=== PATIENT | female | born 1955 | race Caucasian/White ===

== ENCOUNTER 2020-05-17 13:33 | Outpatient (CLI) | payer MEDICARE, SELFPAY ==
--- NOTE | 2020-05-17 13:47 | MM_ITS ---
WS: [id number] Bilateral screening digital mammogram, 05/17/2020 Clinical Data: SCREEN Comparison: 10/06/2018, 08/19/2016, 05/25/2012, 08/30/2009. Findings: The breast parenchymal pattern shows fat replacement. No spiculated masses or clustered calcification s are seen. There are no secondary signs of carcinoma. MM/[id number] Impression: 1. Negative bilateral mammogram unchanged. 2. Recommend annual screening mammograms. BIRADS: 1-Negative FOLLOW UP: 1 Year Follow-up The CAD mold checker was used.
== END 2020-05-17 13:34 | disposition home or self-care (01) ==
LOC: RADSHAW 13:43
PROVIDERS: PCP Family Medicine; Visit Provider Family Medicine
DX: Z12.31 Encounter for screening mammogram for malignant neoplasm of breast (principal)
CPT/HCPCS: 77067

== ENCOUNTER 2021-06-14 11:07 | Outpatient (CLI) | payer MEDICARE, SELFPAY ==
--- NOTE | 2021-06-14 11:15 | XR_ITS ---
WS: [id number] Bone mineral density performed on a [place], today Clinical data: POSTMENOPAUSAL Findings: The first 4 lumbar vertebral bodies demonstrated the bone mineral density of 0.964 g/cm2 for a young adult T score of -1.8. Measurement of the left hip reveals a bone mineral density of 0.691 g/cm2 with a young adult T score of -2.5. Measurement of the right hip reveals the bone mineral density of 0.728 g/cm2 for young adult T score of -2.2. XR/XR DEXA axial skeleton* [id number] Impression: 1. The lumbar spine and right hip show osteopenia. 2. The left hip shows osteoporosis.
--- NOTE | 2021-06-14 11:36 | MM_ITS ---
WS: [id number] BILATERAL DIGITAL SCREENING MAMMOGRAPHY WITH CAD CLINICAL INFORMATION: SCREENING HISTORY: Screening mammogram. No current complaints. COMPARISON: May 17, 2020 TECHNIQUE: Bilateral CC and MLO views. FINDINGS: Scattered fibroglandular densities bilaterally. Punctate calcifications. No suspicious focal mass, as ymmetry, calcifications, or architectural distortion. No evidence of malignancy. MM/[id number] IMPRESSION: BI-RADS: 2-Benign FOLLOW UP: 1 Year Follow-up Recommend return to annual screening mammography.
== END 2021-06-14 11:08 | disposition home or self-care (01) ==
PROVIDERS: PCP Family Medicine; Visit Provider Family Medicine
DX: Z12.31 Encounter for screening mammogram for malignant neoplasm of breast (principal); Z78.0 Asymptomatic menopausal state; M81.0 Age-related osteoporosis without current pathological fracture
CPT/HCPCS: 77067; 77080

== ENCOUNTER 2022-10-09 09:00 | Outpatient (CLI) | payer MEDICARE, SELFPAY ==
--- NOTE | 2022-10-09 09:10 | MM_ITS ---
WS: [id number] BILATERAL SCREENING DIGITAL TOMOSYNTHESIS MAMMOGRAM WITH CAD HISTORY: SCREENING COMPARISON: 06/14/2021, 05/17/2020 Bilateral CC and MLO views with tomosynthesis and synthetic mammography submitted. Computer aided det ection analyzed. Breast composition: There are scattered areas of fibroglandular density. No suspicious masses, microc alcifications or architectural distortion. Benign calcification central LEFT breast. MM/[id number] IMPRESSION: BI-RADS: 2-Benign FOLLOW UP: 1 Year Follow-up
== END 2022-10-09 09:01 | disposition home or self-care (01) ==
LOC: RAD 09:01
PROVIDERS: PCP Family Medicine; Visit Provider Family Medicine
DX: Z12.31 Encounter for screening mammogram for malignant neoplasm of breast (principal)
CPT/HCPCS: 77063; 77067

== ENCOUNTER 2022-10-19 10:27 | Inpatient (IN) | payer MEDICARE, SELFPAY ==
[2022-10-19] VITALS (77 sets, daily range): BP systolic 60–148; BP diastolic 42–100; PULSE 97–116; RESP 16–20; TEMP 36.4–36.6; O2SAT 73–100; BMI 33.4
--- NOTE | 2022-10-19 10:57 | ED_ITS ---
HPI - Weakness General: Chief complaint: Weakness Stated complaint: coughing, not eating, feel really sick Time Seen by Provider: 10/19/22 10:57 History of Present Illness: Ms. Pat is a 67-year-old lady with history of multiple sclerosis thyroid disorder presented to the emergency department due to generalized illness. Patient was seen few days ago in clinic for cough and generalized malaise diagnosed with RSV and sent home. Patient has been continuing symptomatic cares however continues to feel mildly worse. Intensity symptoms moderate. Chest discomfort associated with cough, does endorse some diarrhea, denies measured fevers. No other specific changes in health, exa cerbating, or alleviating factors identified. Onset (ago): day(s) Duration: progressively worsening Location: generalized Severity: moderate Relieving factors: none Exacerbating factors: none Review of Systems General: Reports: 10 or more systems reviewed and unremarkable except in HPI and below PFSH ED PFSH: Medical History Multiple sclerosis Thyroid disorder Surgical History H/O: hysterectomy Family History Other No significant family history Social History Smoking and tobacco status: never smoked Alcohol intake: current Alcohol intake frequency: holidays/special occasions only Substance/Drug Use: never Marital status: Current occupational status: retired Physical Exam Const: COMMON NORMALS: alert GENERAL APPEARANCE: cooperative, well developed and ill appearing (Somewhat) HENMT: COMMON NORMALS: normocephalic and atraumatic HEAD & SCALP: normocephalic and atraumatic THROAT: posterior oropharynx normal Eye: COMMON NORMALS: conjunctivae normal CONJUNCTIVA: Yes conjunctivae normal SCLERA: sclerae normal Neck/C-Spine: COMMON NORMALS: supple GENERAL: Yes trachea midline Resp: EFFORT & INSPECTION: Yes able to speak in complete sentences AUSCULTATION: wheezes and diminished lung sounds Cardio: COMMON NORMALS: regular rate and regular rhythm RATE: regular rate RHYTHM: regular rhythm GI: COMMON NORMALS: Soft to palpation PALPATION: Yes Soft to palpation and No Tenderness to palpation present (GI) Extremity: GENERAL: Yes normal exam except as noted and No edema Neuro: COMMON NORMALS: moves all extremities SENSORIUM/ORIENTATION: Yes alert and No Orientation impaired Psych: COMMON NORMALS: mental status grossly normal and Normal thought process present THOUGHT PROCESS: Normal thought process present Course Vital Signs: Vital signs: Vital Signs Temperature 97.6 F 10/21/22 08:00 Pulse Rate 70 10/21/22 08:00 Respiratory Rate 16 10/21/22 08:00 Blood Pressure 140/87 10/21/22 08:00 Pulse Oximetry 94 10/21/22 11:02 Oxygen Delivery Me thod 10/21/22 08:36 MDM - Weakness Medical Decision Making 67-year-old lady presenting with worsening respiratory symptoms. Somewhat ill appearance. Nontoxic. EKG shows sinus tachycardia, nonspecific ST segment abnormalities, no STEMI. Labs notable for marked leukocytosis, normal hemoglobin, thrombocytosis. Metabolic panel with evidence of dehydration, initial lactic acid is elevated with repeat pending. Mild transaminitis. Procalcitonin significantly elevated. Urinalysis concerning for UTI. Chest x-ray with left-sided consolidation. Given laboratory abnormalities patient overall clinical appearance additional imaging completed. Left lower lobe is almost completely consolidated, incidental findings discussed with patient. Patient treated with allergy treatment, steroids, IV fluids, antibiotics and analgesia. Appears mildly proved however given significant laboratory abnormalities patient requires inpatient management. Most likely etiology of patient symptoms is pneumonia and UTI. Evidence of sepsis present. The results of ED evaluation were discussed with the patient including plan for admission due to requirement for level of care not available if discharged to prevent significant worsening/deterioration. Patient agreeable with plan. Discussed with hospitalist service who was agreeable to admit patient. Medical Records I reviewed the patient's medical records. Lab Data I reviewed the patient's lab results. 10/21/22 03:22 10/21/22 03:22 Radiology Impressions Chest X-Ray 10/19/22 11:08 IMPRESSION: 1. Consolidation at the mid to lower aspects of the left lung. Differential includes atelectasis, pneumonia, and or underlying neoplasm. There is definitely a degree of atelectasis as there is hyper aeration of the right lung with a leftward mediastinal shift. 2. Moderate size hiatal hernia. Chest/Abdomen/Pelvis CT 10/19/22 12:08 IMPRESSION: 1. Left lower lobe is almost completely consolidated consistent with pneumonia and or atelectasis. Underlying neoplasm cannot be excluded. 2. There is a moderate size hiatal hernia. 3. Debris in the distal esophagus is consistent with reflux. IMPRESSION: No acute findings.Non acute findings as described above. COMMENTS: Consistent with the [place] [employer]'s Incidental Findings Committee white paper (J Am Blanca Radiol 2018): Any incidental renal lesion less than 1 cm or classified as too small to characterize, or any incidental cystic renal lesion characterized as simple-appearing, is likely benign. No follow-up imaging is recommended for these lesions per consensus recommendations based on imaging criteria. Laboratory Results WBC 43.3 10^3/uL (4.0-10.0) H* 10/19/22 11: RBC 4.16 10^6/uL (4.1-5.3) 10/19/22 11:27 Hgb 12.3 g/dL (11.5-15.3) 10/19/22 11:27 Hct 35.1 % (37.0-47.0) L 10/19/22 11:27 MCV 84.4 fl (81-99) 10/19/22 11:27 MCH 29.6 pg (28.0-34.0) 10/19/22 11:27 MCHC 35.0 g/dL (30.0-36.0) 10/19/22 11:27 RDW 14.4 % (12.1-15.1) 10/19/22 11:27 Plt Count 636 10^3/cmm (130-400) H 10/19/22 11:27 MPV 9.1 fL (7.4-10.4) 10/19/22 11:27 Neut % (Auto) 96.4 % 10/19/22 11: Lymph % (Auto) 1.6 % 10/19/22 11:27 [place] % (Auto) 1.8 % 10/19/22 11:27 Eos % (Auto) 0.1 % 10/19/22 11:27 Baso % (Auto) 0.1 % 10/19/22 11:27 Neut # (Auto) 39.35 10^3/uL (1.8-7.7) H 10/19/22 11:27 Lymph # (Auto) 0.7 10^3/uL (0.8-4.8) L 10/19/22 11:27 [place] # (Auto) 0.8 10^3/uL (0.2-0.9) 10/19/22 11:27 Eos # (Auto) 0.0 10^3/uL (0.0-0.8) 10/19/22 11:27 Baso # (Auto) 0.0 10^3/uL (0.0-0.1) 10/19/22 11:27 Nucleated RBC % (auto) 0 % 10/19/22 11:27 Nucleated RBCs # 0.0 /100WBC 10/19/22 11:27 Sodium 126 mmol/L (136-145) L 10/19/22 11:27 Potassium 3.4 mmol/L (3.5-5.1) L 10/19/22 11:27 Chloride 91 mmol/L (98-107) L 10/19/22 11:27 Carbon Dioxide 21 mmol/L (22-29) L 10/19/22 11:27 Anion Gap 17.4 (5-19) 10/19/22 11:27 BUN 20 mg/dL (8-23) 10/19/22 11:27 Creatinine 1.1 mg/dL (0.5-0.9) H 10/19/22 11:27 GFR Calculation 49.8 mL/min (90-130) L 10/19/22 11:27 Glucose 105 mg/dL (65-115) 10/19/22 11:27 Calculated Osmolality 265 mOsm/kg (285-295) L 10/19/22 11:27 Lactic Acid 3.9 mmol/L (0.5-2.2) H 10/19/22 12:06 Calcium 9.0 mg/dL (8.5-10.5) 10/19/22 11:27 Iron 8 ug/dL (37-145) L 10/19/22 11:39 TIBC 183 mcg/dl 10/19/22 11:39 % Saturation 4.3 % (20-50) L 10/19/22 11:39 Unsat Iron Binding 175 ug/dL (112-347) 10/19/22 11:39 Total Bilirubin 1.0 mg/dL (0.15-1.2) 10/19/22 11:27 AST 33 U/L (0-32) H 10/19/22 11:27 ALT 27 U/L (0-33) 10/19/22 11:27 Alkaline Phosphatase 228 U/L (35-105) H 10/19/22 11:27 C-Reactive Protein 420.2 mg/L (0.0-4.9) H 10/19/22 11:27 Total Protein 6.4 g/dL (6.6-8.7) L 10/19/22 11: Albumin 2.4 g/dL (3.5-5.2) L 10/19/22 11: Globulin 4.0 g/dL (1.3-4.6) 10/19/22 11:27 Procalcitonin 12.65 ng/mL (0-0.5) H 10/19/22 11: TSH 1.08 uIU/mL (0.27-4.20) 10/19/22 11:39 Urine Color Dark yellow (Yellow) 10/19/22 11:35 Urine Appearance Cloudy (CLEAR) A 10/19/22 11:35 Urine pH 5 (5-7) 10/19/22 11:35 Ur Specific [place] 1.015 (1.005-1.030) 10/19/22 11:35 Urine Protein 2+ (Negative) H 10/19/22 11:35 Urine Glucose (UA) Norm (Normal) 10/19/22 11:35 Urine Ketones 1+ (Negative) H 10/19/22 11:35 Urine Blood 2+ (Negative) H 10/19/22 11:35 Urine Nitrate Positive (Negative) H 10/19/22 11:35 Urine Bilirubin 1+ (Negative) H 10/19/22 11:35 Urine Urobilinogen 4 mg/dL (Negative) H 10/19/22 11:35 Ur Leukocyte Esterase 2+ (Negative) H 10/19/22 11:35 Urine RBC 5-10 /hpf (0-2) H 10/19/22 11:35 Urine WBC Too numerous to cnt /hpf (0-5) H 10/19/22 11:35 Ur Squamous Epith Cells 0-4 /hpf (0-5) H 10/19/22 11:35 Amorphous Sediment Not Reportable 10/19/22 11:35 Urine Bacteria 2+ /hpf (NONE) H 10/19/22 11:35 Influenza Type A Ag negative (Negative) 10/19/22 11:23 Influenza Type B Ag negative (Negative) 10/19/22 11:23 SARS-CoV-2 Ag (Rapid) negative (Negative) 10/19/22 11:23 Critical Care Time Critical Care Time: Critical Care Time: Yes Total Critical Care Time: 35 Attestation: Due to a high probability of clinically significant, possibly life threatening deterioration, the patient required my highest level of attention and preparedness to intervene emergently and I personally spent this critical care time directly and personally managing the patient. This critical care time included obtaining a history; examining the patient; pulse oximetry; ordering and review of laboratory and imaging studies; arranging urgent treatment with development of a management plan; evaluation of patient's response to treatment; frequent reassessment; and, discussions with other providers as applicable. It was exclusive of separately billable procedures. 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
--- NOTE | 2022-10-19 11:08 | XRR_ITS ---
PROCEDURE INFORMATION: Exam: XR Chest Exam date and time: 10/19/2022 11:36 AM Age: 67 years old Clinical indication: Cough and shortness of breath; Additional info: SOB, cough TECHNIQUE: Imaging protocol: Radiologic exam of the chest. Views: 1 view. COMPARISON: CR XR chest 2V* [id number] 10/15/2022 7:57 AM FINDINGS: Lungs: There is hyper aeration of the right lung in relation to the left with a leftward mediastinal shift. There is consolidation at the mid to lower aspects of the left lung field. Pleural spaces: Left costophrenic angle is obscured and a pleural effusion cannot be excluded. Heart/Mediastinum: Moderate size hiatal hernia with an air-fluid level, also seen on the prior study. Bones/joints: Unremarkable. XR/XR chest 1V portable [id number] IMPRESSION: 1. Consolidation at the mid to lower aspects of the left lung. Differential includes atelectasis, pneumonia, and or underlying neoplasm. There is definitely a degree of atelectasis as there is hyper aeration of the right lung with a leftward mediastinal shift. 2. Moderate size hiatal hernia.
--- NOTE | 2022-10-19 11:09 | ECG_ITS ---
[facility] Test Date: 2022-10-19 Pat Name: Maureen Pat Department: Room: Gender: Female Grinder Setup Operator: : [id number] Requested By: Aryan Velasco Order Number: [id number] Lola MD: Svetlana Sanchez M.D. Measurements Intervals [place] Rate: 113 P: 52 [place]: 151 QRS: -8 QRSD: 108 T: 24 QT: 318 QTc: 437 Interpretive Statements SINUS TACHYCARDIA LOW QRS VOLTAGE IN PRECORDIAL LEADS [QRS DEFLECTION < 1.0 mV IN CHEST LEADS] POSSIBLE ANTERIOR MYOCARDIAL INFARCTION , OF INDETERMINATE AGE [30 ms Q WAVE IN V3/V4, OR R < 0.2 mV IN V4] Compared to ECG 10/29/2018 05:23:08 Myocardial infarct finding now present Sinus rhythm no longer present Electronically Signed On 10-20-2022 6:01:30 STORE FACILITY TECHNICIAN by Svetlana Sanchez M.D. [id number]
[2022-10-19] MEDS: ketorolac 30 mg/mL INJ 15 MG IVP (11:34)
[2022-10-19] MEDS: dexamethasone 10 mg/mL INJ IVP (11:34)
[2022-10-19] MEDS: sodium chloride 0.9% 1,000 ML 999 ML IV ×2 (11:34→12:37)
[2022-10-19 11:36] LABS: Basophils % 0.1 %; Eosinophils % 0.1 %; Hematocrit 35.1 % (37.0-47.0); Hemoglobin 12.3 g/dL (11.5-15.3); Lymphocytes # 0.7 10^3/uL (0.8-4.8); Lymphocytes % 1.6 %; Mean Corpuscular Hemoglobin 29.6 pg (28.0-34.0); Mean Corpuscular Volume 84.4 fl (81-99); Mean Platelet Volume 9.1 fL (7.4-10.4); Monocytes # 0.8 10^3/uL (0.2-0.9); Monocytes % 1.8 %; Neutrophils # 39.35 10^3/uL (1.8-7.7); Nucleated Red Blood Cells % 0 %; Platelet Count 636 10^3/cmm (130-400); Red Blood Count 4.16 10^6/uL (4.1-5.3); Red Cell Distribution Width 14.4 % (12.1-15.1)
[2022-10-19 11:51] LABS: Neutrophils % 96.4 %; Slide Review Slide Review Perform
[2022-10-19 11:52] LABS: White Blood Count 43.3 10^3/uL (4.0-10.0)
[2022-10-19 11:53] LABS: SARS Covid-2 Antigen negative (Negative)
[2022-10-19 11:54] LABS: Influenza A by IFA negative (Negative); Influenza B by IFA negative (Negative)
[2022-10-19 12:02] LABS: Procalcitonin 12.65 ng/mL (0-0.5); Thyroid Stimulating Hormone 1.14 uIU/mL (0.27-4.20)
[2022-10-19] MEDS: ipratropium-albuterol 3 mL Neb INHALATION (12:02)
--- NOTE | 2022-10-19 12:08 | CTR_ITS ---
PROCEDURE INFORMATION: Exam: CT Chest With Contrast; Diagnostic Exam date and time: 10/19/2022 1:11 PM Age: 67 years old Clinical indication: Cough, diarrhea, marked leukocytosis TECHNIQUE: Imaging protocol: Diagnostic computed tomography of the chest with contrast. Radiation optimization: All CT scans at this facility use at least one of these dose optimization techniques: automated exposure control; mA and/or kV adjustment per patient size (includes targeted exams where dose is matched to clinical indication); or iterative reconstruction. Contrast material: OMNI 350; Contrast volume: 100 ml; Contrast route: INTRAVENOUS (IV); COMPARISON: CR (CHEST, ) 10/19/2022 11:36 AM RADIATION DOSE METRICS: Total DLP (mGy-cm): 1133.44 FINDINGS: Lungs: Left lower lobe is almost completely consolidated. Mild leftward mediastinal shift. Pleural spaces: Unremarkable. No pneumothorax. No pleural effusion. Heart: Unremarkable. No cardiomegaly. No pericardial effusion. Lymph nodes: Unremarkable. No enlarged lymph nodes. Vasculature: Unremarkable. No aortic aneurysm. Diaphragm: Moderate size hiatal hernia. Stomach and bowel: There is debris in the distal esophagus consistent with reflux. Bones/joints: Unremarkable. No acute fracture. Soft tissues: Unremarkable. PROCEDURE INFORMATION: Exam: CT Abdomen And Pelvis With Contrast Exam date and time: 10/19/2022 1:11 PM Age: 67 years old Clinical indication: Other: Diarrhea; Cough; Additional info: Cough, diarrhea, marked leukocytosis TECHNIQUE: Imaging protocol: Computed tomography of the abdomen and pelvis with contrast. Radiation optimization: All CT scans at this facility use at least one of these dose optimization techniques: automated exposure control; mA and/or kV adjustment per patient size (includes targeted exams where dose is matched to clinical indication); or iterative reconstruction. Contrast material: OMNI 350; Contrast volume: 100 ml; Contrast route: INTRAVENOUS (IV); COMPARISON: CR (CHEST, ) 10/19/2022 11:36 AM RADIATION DOSE METRICS: Total DLP (mGy-cm): 1133.44 FINDINGS: Liver: Normal. No mass. Gallbladder and bile ducts: Normal. No calcified stones. No ductal dilation. Pancreas: Normal. No ductal dilation. Spleen: Normal. No splenomegaly. Adrenal glands: Normal. No mass. Kidneys and ureters: 11 mm cyst in the left kidney is benign features. Follow-up is not necessary. Stomach and bowel: Unremarkable. No obstruction. No mucosal thickening. Appendix: A normal appendix is identified. Intraperitoneal space: Unremarkable. No free air. No significant fluid collection. Vasculature: Unremarkable. No abdominal aortic aneurysm. Lymph nodes: Unremarkable. No enlarged lymph nodes. Urinary bladder: Unremarkable as visualized. Reproductive: The uterus is not visualized, consistent with hysterectomy. Bones/joints: There are degenerative changes in the visualized spine. Lumbar levoscoliosis. Soft tissues: Tiny fat containing umbilical hernia. CT/CT chest abd pel w con* IMPRESSION: 1. Left lower lobe is almost completely consolidated consistent with pneumonia and or atelectasis. Underlying neoplasm cannot be excluded. 2. There is a moderate size hiatal hernia. 3. Debris in the distal esophagus is consistent with reflux. IMPRESSION: No acute findings.Non acute findings as described above. COMMENTS: Consistent with the [place] [employer]'s Incidental Findings Committee white paper (J Am Blanca Radiol 2018): Any incidental renal lesion less than 1 cm or classified as too small to characterize, or any incidental cystic renal lesion characterized as simple-appearing, is likely benign. No follow-up imaging is recommended for these lesions per consensus recommendations based on imaging criteria.
[2022-10-19 12:10] LABS: Add Urine Microscopic? YES; Bilirubin Urine 1+ (Negative); Blood Urine 2+ (Negative); Glucose Urine UA Norm (Normal); Ketones Urine 1+ (Negative); Leukocyte Esterase Urine 2+ (Negative); Nitrate Urine Positive (Negative); Protein Urine 2+ (Negative); Specific Gravity, Urine 1.015 (1.005-1.030); Urine Appearance Cloudy (CLEAR); Urine Color Dark Yellow (Yellow); Urobilinogen Urine 4 mg/dL (Negative); pH Urine 5 (5-7)
[2022-10-19 12:11] LABS: Add Urine Culture? Yes; Bacteria Urine 2+ /hpf; Squamous Epithelial Cell Urine 0-4 /hpf (0-5); WBC Urine TOO NUMEROUS TO CNT /hpf (0-5)
[2022-10-19 12:13] LABS: Alanine Aminotransferase 27 U/L (0-33); Albumin Level 2.4 g/dL (3.5-5.2); Alkaline Phosphatase 228 U/L (35-105); Anion Gap 17.4 (5-19); Aspartate Amino Transferase 33 U/L (0-32); Blood Urea Nitrogen 20 mg/dL (8-23); Carbon Dioxide 21 mmol/L (22-29); Chloride 91 mmol/L (98-107); Glomerular Filtration Rate 49.8 mL/min (90-130); Glucose 105 mg/dL (65-115); Osmolality Calculated 265 mOsm/kg (285-295); Potassium 3.4 mmol/L (3.5-5.1); Sodium 126 mmol/L (136-145); Total Protein 6.4 g/dL (6.6-8.7)
[2022-10-19 12:31] LABS: C Reactive Protein 420.2 mg/L (0.0-4.9)
[2022-10-19] MEDS: piperacillin-tazobactam 4.5 GM in sodium chloride 0.9% (plus) 50 ML IV (12:37)
[2022-10-19 12:45] LABS: Lactic Sepsis W/Reflex 3.9 mmol/L (0.5-2.2)
[2022-10-19] MEDS: iohexol 350 mg/mL 500 mL Btl (per mL) IV (13:27)
[2022-10-19 14:02] LABS: Reflex Lactate Order REFLEX LACTIC ORDERD
[2022-10-19] MEDS: vancomycin 1,500 MG/300 ML PIGGYBACK 200 MG IV (14:08)
--- NOTE | 2022-10-19 15:43 | PC.NURSE ---
Erinn valnezuela took report
[2022-10-19 16:17] LABS: Lactic Acid level (Lactate) 4.3 mmol/L (0.5-2.2)
--- NOTE | 2022-10-19 16:47 | P.HP_ITS ---
Providers/Chief Complaint Admitting Physician: Matthew Mittal Primary Care Provider: Esdras Aguilar MD Chief Complaint: coughing, not eating, feel really sick History of Present Illness Pleasant 67-year-old lady with history of MS, not currently on medical therapy, normally walks with a cane, hypothyroidism, has been feeling unwell for several days, initially diagnosed by RSV by her primary provider, but has not been improving, has been having generalized weakness, cough transiently had some diarrhea. Very poor appetite and poor oral intake. Due to some worsening and persistence of symptoms came in for assessment to ER. Here found to have sinus tachycardia, leukocytosis 43.3, hemoglobin 12.3, platelets 636. Sodium 126. Potassium 3.4. Chloride 91. Bicarb 21. Anion gap 17.4. Lactic acid 4.3. BUN 20, creatinine 1.1. AST 33. Alk phos 228. CRP 420. Albumin 2.4. Procalcitonin 4.65. TSH 1.14. Glucose 105. UA with urine cloudy, 2+ protein, 1+ ketones, 2+ blood, positive nitrate, 1+ bilirubin, urobilinogen 4, 2+ leukocyte esterase, 5-10 RBC, too numerous to count WBC, 0-4 SEC, 2+ bacteria. Last blood pressure 60/42 I am told he has not had his, rather than next patient in ER room she was just in. Review of Systems Const: Reports: fatigue, malaise and diaphoresis Eyes: Denies: change in vision, eye discomfort or eye redness ENMT: Denies: throat pain, oral sores or ear or mastoid pain Card: Denies: chest pain, edema, pre-syncope or dyspnea on exertion Resp: Reports: dyspnea and productive cough; Denies: hemoptysis GI: Reports: diarrhea; Denies: abdominal pain, nausea, vomiting, constipation, hematochezia or melena : Denies: flank pain, urinary frequency or hematuria Musc: Denies: back pain, joint swelling or joint redness Skin/Breast: Denies: rash or new lesions Neuro: Denies: headache(s), numbness in extremities, weakness in extremities, dizziness, confusion or seizure-like activity Endo: Denies: polyuria or polydipsia Chito/Lymph: Denies: easy bleeding or tender lymph nodes All/Imm: Denies: urticaria or tongue swelling Medications/Allergies Allergies Allergy/AdvReac Type Severity Reaction Status Date / Time No Known Allergies Allergy Verified 10/19/22 10:45 PFSH Acute PFSH: Medical History Multiple sclerosis Thyroid disorder Surgical History H/O: hysterectomy Family History Other No significant family history Social History Smoking and tobacco status: never smoked Alcohol intake: current Alcohol intake frequency: holidays/special occasions only Substance/Drug Use: never Marital status: Current occupational status: retired Vitals/I&O/Wt Last Vital Signs Temp 97.5 F L 10/19/22 10:45 Pulse 103 H 10/19/22 12:12 Resp 18 10/19/22 12:12 BP 60/42 10/19/22 16:40 Pulse Ox 83 L 10/19/22 14:55 O2 Del Method 10/19/22 12:12 10/19/22 10/19/22 10/19/22 06:59 14:59 22:59 Intake Total 1050 / 1050 1000 / 2050 Balance 1050 / 1050 1000 / 2050 Weight last 48 hrs Weight 86.183 kg Physical Exam Narrative: Accompanied by her at bedside. Const: COMMON NORMALS: patient oriented x3 and alert GENERAL APPEARANCE: cooperative ORIENTATION/CONSCIOUSNESS: Yes awake HENMT: COMMON NORMALS: oropharynx normal Neck/C-Spine: COMMON NORMALS: no JVD Resp: COMMON NORMALS: normal respiratory effort and clear to auscultation bilaterally AUSCULTATION: crackles Laterality: left Cardio: COMMON NORMALS: no JVD, regular rhythm, S1 normal heart sound present, S2 normal heart sound present and No murmurs present (Cardio) RHYTHM: regular rhythm HEART SOUNDS: S1 normal heart sound present and S2 normal heart sound present GI: COMMON NORMALS: Normal to inspection, nondistended, normoactive bowel sounds present, Soft to palpation and non-tender PALPATION: Yes Soft to palpation Extremity: COMMON NORMALS: no joint enlargement and no pedal edema Neuro: COMMON NORMALS: patient oriented x3 and moves all extremities SENSORIUM/ORIENTATION: Yes alert Skin: COMMON NORMALS: no rashes or lesions noted GENERAL SKIN EXAM: no rashes or lesions noted Sepsis: Is patient septic: Yes Focused sepsis exam performed: Yes Data 10/19/22 11:27 10/19/22 11:27 Micro: Microbiology 10/19/22 12:06 Blood Culture - Preliminary Blood SPECIMEN COLLECTED 10/19/22 12:11 Blood Culture - Preliminary Blood SPECIMEN COLLECTED A&P Assessment and plan (1) Sepsis: Sepsis, with leukocytosis 43.3, sinus tachycardia 103, lactic acidosis 4.3. Mild acute kidney injury 1.1.Mild transaminitis 33. In the setting of multiple sclerosis. Secondary to pneumonia, bacterial pneumonia superimposed on RSV, as well as urinary tract infection. Blood cultures collected. Received empiric antibiotic coverage with Zosyn, vancomycin. We will continue with broad-spectrum coverage. Follow-up cultures. Collect sputum cultures, collect MRSA PCR, urine bacterial antigens. Follow-up urine culture. Received 2 L NS boluses. (2) Pneumonia: As above. Rapid COVID-19, rapid influenza are negative. (3) Acute UTI: Zosyn. Follow-up urine culture. No obstructive uropathy on CT. (4) Dehydration: Very poor oral intake and appetite recently. Dehydration with likely hypovolemic hyponatremia. Received fluid challenge with fluid boluses. Continue gentle IV hydration. With starvation ketosis/ketonuria. (5) Acidosis, lactic: Follow-up lactic acid with improvement down to 3.9 after fluid resuscitation and additional therapy. (6) Leukocytosis: Very high leukocytosis, some episodes of diarrhea. Check C. difficile. Otherwise likely secondary to sepsis as above combined with dehydration. (7) Hyponatremia: Likely hypovolemic hyponatremia. Received fluid resuscitation. Follow-up sodium level. (8) Multiple sclerosis: Walks with a cane. (9) Thyroid disorder: Resume thyroid medication once home medications are confirmed. Plan Hypokalemia: Replace Mild JOHANNA: Creatinine 1.1. Secondary to sepsis. Received fluid challenge. No hydronephrosis. Follow-up renal function. Attestations Medical Necessity Statement*: Admission of over 2 midnights anticipated for assessment of management of sepsis with pneumonia, UTI in a lady with multiple sclerosis. Coding Level of Care Code Acute Vegetable Ii Farmworker for [facility] Diagnoses Sepsis A41.9 Pneumonia J18.9 Acute UTI N39.0 Dehydration E86.0 Acidosis, lactic E87.20 Leukocytosis D72.829 Hyponatremia E87.1 Multiple sclerosis G35 Thyroid disorder E07.9
[2022-10-19] MEDS: enoxaparin 40 mg/0.4 mL Syringe SUBCUT (18:59)
[2022-10-19] MEDS: pantoprazole DR 40 mg Tablet PO (19:00)
[2022-10-19 19:56] LABS: Sodium 129 mmol/L (136-145)
[2022-10-19] MEDS: piperacillin-tazobactam 3.375 GM in sodium chloride 0.9% (plus) 50 ML IV (21:27)
[2022-10-19] MEDS: lactated ringers 1,000 ML 75 ML IV (22:23)
[2022-10-20] VITALS (10 sets, daily range): BP systolic 121–138; BP diastolic 69–95; PULSE 69–100; RESP 16–19; TEMP 36.3–36.7; O2SAT 91–96
[2022-10-20] MEDS: piperacillin-tazobactam 3.375 GM in sodium chloride 0.9% (plus) 50 ML IV ×3 (03:38→20:02)
[2022-10-20 05:26] LABS: Hematocrit 28.8 % (37.0-47.0); Hemoglobin 10.3 g/dL (11.5-15.3); Lymphocytes % 2.3 %; Mean Corpuscular HGB Conc 35.8 g/dL (30.0-36.0); Mean Corpuscular Hemoglobin 29.8 pg (28.0-34.0); Mean Corpuscular Volume 83.2 fl (81-99); Mean Platelet Volume 9.2 fL (7.4-10.4); Monocytes # 0.9 10^3/uL (0.2-0.9); Monocytes % 1.9 %; Neutrophils # 39.46 10^3/uL (1.8-7.7); Neutrophils % 89.7 %; Nucleated Red Blood Cells % 0 %; Platelet Count 629 10^3/cmm (130-400); Red Blood Count 3.46 10^6/uL (4.1-5.3); Red Cell Distribution Width 14.5 % (12.1-15.1)
[2022-10-20 05:43] LABS: Alanine Aminotransferase 21 U/L (0-33); Albumin Level 1.7 g/dL (3.5-5.2); Alkaline Phosphatase 168 U/L (35-105); Anion Gap 13.1 (5-19); Aspartate Amino Transferase 19 U/L (0-32); Blood Urea Nitrogen 20 mg/dL (8-23); Calcium 8.2 mg/dL (8.5-10.5); Carbon Dioxide 21 mmol/L (22-29); Chloride 98 mmol/L (98-107); Globulin 3.4 g/dL (1.3-4.6); Glomerular Filtration Rate 100.3 mL/min (90-130); Glucose 104 mg/dL (65-115); Osmolality Calculated 271 mOsm/kg (285-295); Potassium 3.1 mmol/L (3.5-5.1); Sodium 129 mmol/L (136-145); Total Bilirubin 0.6 mg/dL (0.15-1.2); Total Protein 5.1 g/dL (6.6-8.7)
[2022-10-20 06:03] LABS: Slide Review Slide Review Perform
[2022-10-20] MEDS: pantoprazole DR 40 mg Tablet PO (10:33)
[2022-10-20 12:25] LABS: Cortisol Random 48.45 ug/dL (2.47-19.5)
[2022-10-20 12:26] LABS: Iron 8 ug/dL (37-145); Percent Saturation 4.3 % (20-50); Thyroid Stimulating Hormone 1.08 uIU/mL (0.27-4.20); Total Iron Binding Capacity 183 mcg/dl; Unsaturated Iron Binding 175 ug/dL (112-347)
[2022-10-20] MEDS: potassium chloride ER 20 mEq Tablet 80 MEQ PO (12:59)
[2022-10-20] MEDS: duloxetine 60 mg Capsule PO (13:00)
[2022-10-20] MEDS: sodium chloride 0.9% 1,000 ML 75 ML IV (13:01)
[2022-10-20] MEDS: vancomycin 1,000 MG in sodium chloride 0.9% 250 ML 250 MG IV (14:25)
--- NOTE | 2022-10-20 15:22 | PM.PN ---
Subjective Subjective: Hospital course, labs appreciated. Laying comfortably in bed. Working on phone on entering the room. Patient states he is feeling a lot better. Has been hemodynamically stable and afebrile on room air. Vitals/I&O/Wt Last Vital Signs Temp 97.3 F L 10/20/22 12:00 Pulse 82 10/20/22 12:00 Resp 16 10/20/22 12:00 BP 121/76 10/20/22 12:00 Pulse Ox 96 10/20/22 12:00 O2 Del Method 10/20/22 12:00 10/20/22 10/20/22 10/20/22 06:59 14:59 22:59 Intake Total 250 / 2840 1840 / 1840 Output Total 400 / 700 Balance -150 / 2140 1840 / 1840 Weight last 48 hrs Weight 80.195 kg Weight 80.286 kg Weight 86.183 kg Physical Exam Narrative: Accompanied by her at bedside. Const: COMMON NORMALS: patient oriented x3 and alert GENERAL APPEARANCE: cooperative ORIENTATION/CONSCIOUSNESS: Yes awake HENMT: COMMON NORMALS: oropharynx normal Neck/C-Spine: COMMON NORMALS: no JVD Resp: COMMON NORMALS: normal respiratory effort and clear to auscultation bilaterally AUSCULTATION: clear to auscultation bilaterally and crackles Laterality: left Cardio: COMMON NORMALS: no JVD, regular rhythm, S1 normal heart sound present, S2 normal heart sound present and No murmurs present (Cardio) RHYTHM: regular rhythm HEART SOUNDS: S1 normal heart sound present and S2 normal heart sound present GI: COMMON NORMALS: Normal to inspection, nondistended, normoactive bowel sounds present, Soft to palpation and non-tender PALPATION: Yes Soft to palpation Extremity: COMMON NORMALS: no joint enlargement and no pedal edema Neuro: COMMON NORMALS: patient oriented x3 and moves all extremities SENSORIUM/ORIENTATION: Yes alert Skin: COMMON NORMALS: no rashes or lesions noted GENERAL SKIN EXAM: no rashes or lesions noted Data 10/20/22 04:57 10/20/22 04:57 Micro: Microbiology 10/20/22 05:45 C.difficile Toxin B Gene (PCR) - Final Stool Routine Collection 10/19/22 18:20 MRSA Culture - Final Nose 10/19/22 12:06 Blood Culture - Preliminary Blood NEGATIVE TO DATE 10/19/22 12:11 Blood Culture - Preliminary Blood NEGATIVE TO DATE 10/19/22 11:35 Urine Culture - Preliminary Urine,Clean Catch Gram Negative Rods Gram Negative Rods#2 10/19/22 11:45 Legionella Urinary Antigen - Final Urine,Clean Catch Bacterial Antigens - Final 10/20/22 00:15 Gram Stain - Final Sputum - Expectorated Sputum A&P Assessment and plan (1) Sepsis: Sepsis, with leukocytosis 43.3, sinus tachycardia 103, lactic acidosis 4.3. Mild acute kidney injury 1.1.Mild transaminitis 33. In the setting of multiple sclerosis. Present on admission. Secondary to pneumonia, bacterial pneumonia superimposed on RSV, as well as urinary tract infection. Blood cultures so far negative, MRSA negative, urine culture growing 2 separate gram-negative rods. C. difficile negative. Continue with Zosyn. Stop vancomycin as MRSA negative. Follow-up sputum culture. Keep mean artery pressure over 65. (2) Pneumonia: As above. Rapid COVID-19, rapid influenza are negative. DuoNebs as needed. Oxygen supplementation keeping saturation over 88%. (3) Acute UTI: Follow-up urine culture. No obstructive uropathy on CT scan. (4) Leukocytosis: On review of clinical improvement, persistent leukocytosis less likely secondary to sepsis. C. difficile negative. Cannot rule out lymphoid reaction versus lymphoma. Check lymphoma profile. Continue to monitor. (5) Hyponatremia: Likely hypovolemic hyponatremia. In setting of dehydration. Switch to normal saline. Check urine lites. (6) Multiple sclerosis: Walks with a cane. (7) Dehydration: With starvation ketosis/ketonuria. Dehydration consistent with hyponatremia. Resolving. (8) Thyroid disorder: Resume thyroid medication once home medications are confirmed. (9) Acidosis, lactic: Stop LR. Switch to normal saline. Plan Restart home dose of levothyroxine. Full code. Regular diet. Protonix for PUD prophylaxis. Lovenox for DVT prophylaxis. Attestations Medical Necessity Statement*: Requires further hospitalization for management of sepsis and secondary to UTI, multiple sclerosis, severe persistent leukocytosis, hyponatremia Time Spent in Patient Care: Greater than 35 minutes Coding Level of Care Code Acute Engine Emission Technician for [facility] Diagnoses Sepsis A41.9 Pneumonia J18.9 Acute UTI N39.0 Leukocytosis D72.829 Hyponatremia E87.1 Multiple sclerosis G35 Dehydration E86.0 Thyroid disorder E07.9 Acidosis, lactic E87.20
[2022-10-20 16:50] LABS: Potassium, Radom Urine 16 mmol/L
[2022-10-20 16:51] LABS: Urine Random Chloride 12 mmol/L
[2022-10-20 17:17] LABS: Urine Random Sodium 10 mmol/L
[2022-10-20] MEDS: enoxaparin 40 mg/0.4 mL Syringe SUBCUT (17:27)
[2022-10-21] MEDS: sodium chloride 0.9% 1,000 ML 75 ML IV (01:33)
[2022-10-21] MEDS: piperacillin-tazobactam 3.375 GM in sodium chloride 0.9% (plus) 50 ML IV (03:44)
[2022-10-21 04:00] VITALS: BP 131/79; PULSE 81; RESP 19; TEMP 36.4; O2SAT 93
[2022-10-21 04:19] LABS: Basophils % 0.1 %; Hematocrit 31.5 % (37.0-47.0); Hemoglobin 10.6 g/dL (11.5-15.3); Lymphocytes # 1.4 10^3/uL (0.8-4.8); Lymphocytes % 4.6 %; Mean Corpuscular HGB Conc 33.7 g/dL (30.0-36.0); Mean Corpuscular Volume 86.1 fl (81-99); Mean Platelet Volume 9.2 fL (7.4-10.4); Monocytes # 0.8 10^3/uL (0.2-0.9); Monocytes % 2.8 %; Neutrophils # 23.56 10^3/uL (1.8-7.7); Neutrophils % 80.3 %; Nucleated Red Blood Cells % 0 %; Platelet Count 795 10^3/cmm (130-400); Red Blood Count 3.66 10^6/uL (4.1-5.3); Red Cell Distribution Width 14.7 % (12.1-15.1); White Blood Count 29.3 10^3/uL (4.0-10.0)
[2022-10-21 04:26] LABS: Estmated Average Glucose 114; Hemoglobin A1C 5.6 % (4.0-6.0)
[2022-10-21 04:39] LABS: Alanine Aminotransferase 23 U/L (0-33); Albumin Level 1.9 g/dL (3.5-5.2); Alkaline Phosphatase 180 U/L (35-105); Aspartate Amino Transferase 33 U/L (0-32); Blood Urea Nitrogen 28 mg/dL (8-23); Calcium 8.3 mg/dL (8.5-10.5); Carbon Dioxide 22 mmol/L (22-29); Chloride 104 mmol/L (98-107); Chol HDL Ratio 9.64 mg/dL (0.0-4.40); Cholesterol 135 mg/dL (0-200); Globulin 3.1 g/dL (1.3-4.6); Glucose 91 mg/dL (65-115); HDL Cholesterol 14 mg/dL (60-100); LDL Cholesterol Calculated 83 mg/dL (50-129); Osmolality Calculated 279 mOsm/kg (285-295); Sodium 132 mmol/L (136-145); Total Bilirubin 0.4 mg/dL (0.15-1.2); Triglycerides 191 mg/dL (0-150); VLDL Cholestrol Calculation 38 mg/dL (0-30)
[2022-10-21 04:42] LABS: Anion Gap 10.5 (5-19); Potassium 4.5 mmol/L (3.5-5.1)
[2022-10-21 05:43] VITALS: PULSE 60
[2022-10-21 08:00] VITALS: BP 140/87; PULSE 70; RESP 16; TEMP 36.4; O2SAT 94
[2022-10-21] MEDS: pantoprazole DR 40 mg Tablet PO (08:18)
[2022-10-21] MEDS: duloxetine 60 mg Capsule PO (08:18)
[2022-10-21] MEDS: levothyroxine 88 mcg Tablet PO (08:18)
[2022-10-21 08:36] VITALS: O2SAT 94
--- NOTE | 2022-10-21 09:32 | P.DS_ITS ---
Discharge Providers Date of Admission: 10/19/22 14:52 Date of Discharge: October 21, 2022 Attending Provider at Admission: Matthew Mittal Attending Provider at Discharge: Adams Forde MD Primary Care Provider: Esdras Aguilar MD Diagnoses at Discharge Discharge Diagnosis (1) Sepsis: Status: Acute (2) Pneumonia: Status: Acute (3) Acute UTI: Status: Acute (4) Leukocytosis: Status: Acute (5) Hyponatremia: Status: Acute (6) Multiple sclerosis: Status: Acute (7) Dehydration: Status: Acute (8) Thyroid disorder: Status: Acute (9) Acidosis, lactic: Status: Acute Reason for Visit Reason for Visit: coughing, not eating, feel really sick Brief History: History as per HPI: Pleasant 67-year-old lady with history of MS, not currently on medical therapy, normally walks with a cane, hypothyroidism, has been feeling unwell for several days, initially diagnosed by RSV by her primary provider, but has not been improving, has been having generalized weakness, cough transiently had some diarrhea.? Very poor appetite and poor oral intake.? Due to some worsening and persistence of symptoms came in for assessment to ER.? Here found to have sinus tachycardia, leukocytosis 43.3, hemoglobin 12.3, platelets 636.? Sodium 126.? Potassium 3.4.? Chloride 91.? Bicarb 21.? Anion gap 17.4.? Lactic acid 4.3.? BUN 20, creatinine 1.1.? AST 33.? Alk phos 228.? CRP 420.? Albumin 2.4.? Procalcitonin 4.65.? TSH 1.14.? Glucose 105.? UA with urine cloudy, 2+ protein, 1+ ketones, 2+ blood, positive nitrate, 1+ bilirubin, urobilinogen 4, 2+ leukocyte esterase, 5-10 RBC, too numerous to count WBC, 0-4 SEC, 2+ bacteria. Last blood pressure 60/42 I am told he has not had his, rather than next patient in ER room she was just in. Hospital Course Hospital Course Admitted to hospital further evaluation and management. On admission there was concern for sepsis secondary to UTI, hyponatremia. She was started on broad- spectrum antibiotics along with IV fluids. Eventually her hyponatremia resolved. Patient had persistent leukocytosis even though sepsis had resolved and patient remained afebrile. There is a concern for leukemoid reaction versus lymphoma. Lymphoma panel has been sent out. Patient leukocytosis white discharge is resolving but still more than 25,000. Blood cultures remain negative though urine culture positive for 2 separate E. coli's. She has been discharged home on oral cefuroxime for 5 more days as per culture sensitivities with advised to follow-up with a primary care provider within next 1 week for repeat CBC and CMP. Physical Exam Narrative: Accompanied by her at bedside. Const: COMMON NORMALS: patient oriented x3 and alert GENERAL APPEARANCE: co operative ORIENTATION/CONSCIOUSNESS: Yes awake HENMT: COMMON NORMALS: oropharynx normal Neck/C-Spine: COMMON NORMALS: no JVD Resp: COMMON NORMALS: normal respiratory effort and clear to auscultation bilaterally AUSCULTATION: clear to auscultation bilaterally and crackles Laterality: left Cardio: COMMON NORMALS: no JVD, regular rhythm, S1 normal heart sound present, S2 normal heart sound present and No murmurs present (Cardio) RHYTHM: regular rhythm HEART SOUNDS: S1 normal heart sound present and S2 normal heart sound present GI: COMMON NORMALS: Normal to inspection, nondistended, normoactive bowel sounds present, Soft to palpation and non-tender PALPATION: Yes Soft to palpation Extremity: COMMON NORMALS: no joint enlargement and no pedal edema Neuro: COMMON NORMALS: patient oriented x3 and moves all extremities SENSORIUM/ORIENTATION: Yes alert Skin: COMMON NORMALS: no rashes or lesions noted GENERAL SKIN EXAM: no rashes or lesions noted Discharge Data Studies Completed and Pending Completed Studies During Hospitalization Category Date Time Status CT chest abd pel w con* Stat Cat Scan 10/19/22 12:08 Completed XR chest 1V portable [id number] Stat Exams 10/19/22 11:08 Completed Pending at discharge Category Date Time Status Blood Culture Stat Lab 10/19/22 12:11 Results Complete Blood Count w/Auto AM LABS Lab 10/22/22 04:00 Ordered Comprehensive Metabolic Panel AM LABS Lab 10/22/22 04:00 Ordered Sputum Culture and Gram Stain Routine Lab 10/20/22 00:15 Results Urine Culture Stat Lab 10/19/22 11:35 Results Radiology Impressions Chest X-Ray 10/19/22 11:08 IMPRESSION: 1. Consolidation at the mid to lower aspects of the left lung. Differential includes atelectasis, pneumonia, and or underlying neoplasm. There is definitely a degree of atelectasis as there is hyper aeration of the right lung with a leftward mediastinal shift. 2. Moderate size hiatal hernia. Chest/Abdomen/Pelvis CT 10/19/22 12:08 IMPRESSION: 1. Left lower lobe is almost completely consolidated consistent with pneumonia and or atelectasis. Underlying neoplasm cannot be excluded. 2. There is a moderate size hiatal hernia. 3. Debris in the distal esophagus is consistent with reflux. IMPRESSION: No acute findings.Non acute findings as described above. COMMENTS: Consistent with the [place]'s Incidental Findings Committee white paper (J Am Blanca Radiol 2018): Any incidental renal lesion less than 1 cm or classified as too small to characterize, or any incidental cystic renal lesion characterized as simple-appearing, is likely benign. No follow-up imaging is recommended for these lesions per consensus recommendations based on imaging criteria. Microbiology 10/19/22 11:35 Urine,Clean Catch Urine Culture - Final Escherichia coli Escherichia coli#2 10/20/22 00:15 Sputum - Expectorated Sputum Gram Stain - Final 10/20/22 00:15 Sputum - Expectorated Sputum Sputum Culture - Preliminary 10/20/22 05:45 Stool Routine Collection C.difficile Toxin B Gene (PCR) - Final 10/19/22 18:20 Nose MRSA Culture - Final 10/19/22 12:06 Blood Blood Culture - Preliminary NEGATIVE TO DATE 10/19/22 12:11 Blood Blood Culture - Preliminary NEGATIVE TO DATE 10/19/22 11:45 Urine,Clean Catch Legionella Urinary Antigen - Final 10/19/22 11:45 Urine,Clean Catch Bacterial Antigens - Final Laboratory Results WBC 29.3 10^3/uL (4.0-10.0) H 10/21/22 03:22 RBC 3.66 10^6/uL (4.1-5.3) L 10/21/22 03:22 Hgb 10.6 g/dL (11.5-15.3) L 10/21/22 03:22 Hct 31.5 % (37.0-47.0) L 10/21/22 03:22 MCV 86.1 fl (81-99) 10/21/22 03:22 MCH 29.0 pg (28.0-34.0) 10/21/22 03:22 MCHC 33.7 g/dL (30.0-36.0) D 10/21/22 03:22 RDW 14.7 % (12.1-15.1) 10/21/22 03:22 Plt Count 795 10^3/cmm (130-400) H 10/21/22 03:22 MPV 9.2 fL (7.4-10.4) 10/21/22 03:22 Neut % (Auto) 80.3 % 10/21/22 03:22 Lymph % (Auto) 4.6 % 10/21/22 03:22 [place] % (Auto) 2.8 % 10/21/22 03:22 Eos % (Auto) 0.0 % 10/21/22 03:22 Baso % (Auto) 0.1 % 10/21/22 03:22 Neut # (Auto) 23.56 10^3/uL (1.8-7.7) H 10/21/22 03:22 Lymph # (Auto) 1.4 10^3/uL (0.8-4.8) 10/21/22 03:22 [place] # (Auto) 0.8 10^3/uL (0.2-0.9) 10/21/22 03:22 Eos # (Auto) 0.0 10^3/uL (0.0-0.8) 10/21/22 03:22 Baso # (Auto) 0.0 10^3/uL (0.0-0.1) 10/21/22 03:22 Nucleated RBC % (auto) 0 % 10/21/22 03:22 Nucleated RBCs # 0.0 /100WBC 10/21/22 03:22 Sodium 132 mmol/L (136-145) L 10/21/22 03:22 Potassium 4.5 mmol/L (3.5-5.1) 10/21/22 03:22 Chloride 104 mmol/L (98-107) 10/21/22 03:22 Carbon Dioxide 22 mmol/L (22-29) 10/21/22 03:22 Anion Gap 10.5 (5-19) 10/21/22 03:22 BUN 28 mg/dL (8-23) H 10/21/22 03:22 Creatinine 0.7 mg/dL (0.5-0.9) 10/21/22 03:22 GFR Calculation 84.0 mL/min (90-130) L 10/21/22 03:22 Glucose 91 mg/dL (65-115) 10/21/22 03:22 Estimat Average Glucose 114 10/21/22 03:22 Hemoglobin A1c 5.6 % (4.0-6.0) 10/21/22 03:22 Calculated Osmolality 279 mOsm/kg (285-295) L 10/21/22 03:22 Lactic Acid 3.9 mmol/L (0.5-2.2) H 10/19/22 12:06 Lactic Acid (Sepsis) 4.3 mmol/L (0.5-2.2) H* 10/19/22 15:10 Calcium 8.3 mg/dL (8.5-10.5) L 10/21/22 03:22 Iron 8 ug/dL (37-145) L 10/19/22 11:39 TIBC 183 mcg/dl 10/19/22 11:39 % Saturation 4.3 % (20-50) L 10/19/22 11:39 Unsat Iron Binding 175 ug/dL (112-347) 10/19/22 11:39 Total Bilirubin 0.4 mg/dL (0.15-1.2) 10/21/22 03:22 AST 33 U/L (0-32) H 10/21/22 03:22 ALT 23 U/L (0-33) 10/21/22 03:22 Alkaline Phosphatase 180 U/L (35-105) H 10/21/22 03:22 C-Reactive Protein 420.2 mg/L (0.0-4.9) H 10/19/22 11:27 Total Protein 5.0 g/dL (6.6-8.7) L 10/21/22 03:22 Albumin 1.9 g/dL (3.5-5.2) L 10/21/22 03:22 Globulin 3.1 g/dL (1.3-4.6) 10/21/22 03:22 Triglycerides 191 mg/dL (0-150) H 10/21/22 03:22 Cholesterol 135 mg/dL (0-200) 10/21/22 03:22 LDL Cholesterol, Calc 83 mg/dL (50-129) 10/21/22 03:22 Total VLDL Cholesterol 38 mg/dL (0-30) H 10/21/22 03:22 HDL Cholesterol 14 mg/dL (60-100) L 10/21/22 03:22 Cholesterol/HDL Ratio 9.64 mg/dL (0.0-4.40) H 10/21/22 03:22 Procalcitonin 12.65 ng/mL (0-0.5) H 10/19/22 11:27 TSH 1.08 uIU/mL (0.27-4.20) 10/19/22 11:39 Random Cortisol 48.45 ug/dL (2.47-19.5) H 10/20/22 11:39 Urine Color Dark yellow (Yellow) 10/19/22 11:35 Urine Appearance Cloudy (CLEAR) A 10/19/22 11:35 Urine pH 5 (5-7) 10/19/22 11:35 Ur Specific Aspers 1.015 (1.005-1.030) 10/19/22 11:35 Urine Protein 2+ (Negative) H 10/19/22 11:35 Urine Glucose (UA) Norm (Normal) 10/19/22 11:35 Urine Ketones 1+ (Negative) H 10/19/22 11:35 Urine Blood 2+ (Negative) H 10/19/22 11:35 Urine Nitrate Positive (Negative) H 10/19/22 11:35 Urine Bilirubin 1+ (Negative) H 10/19/22 11:35 Urine Urobilinogen 4 mg/dL (Negative) H 10/19/22 11:35 Ur Leukocyte Esterase 2+ (Negative) H 10/19/22 11:35 Urine RBC 5-10 /hpf (0-2) H 10/19/22 11:35 Urine WBC Too numerous to cnt /hpf (0-5) H 10/19/22 11:35 Ur Squamous Epith Cells 0-4 /hpf (0-5) H 10/19/22 11:35 Amorphous Sediment Not Reportable 10/19/22 11:35 Urine Bacteria 2+ /hpf (NONE) H 10/19/22 11:35 Ur Random Sodium 10 mmol/L 10/20/22 16:30 Ur Random Potassium 16 mmol/L 10/20/22 16:30 Ur Random Chloride 12 mmol/L 10/20/22 16:30 Influenza Type A Ag negative (Negative) 10/19/22 11:23 Influenza Type B Ag negative (Negative) 10/19/22 11:23 SARS-CoV-2 Ag (Rapid) negative (Negative) 10/19/22 11:23 Vitals Last Vital Signs Temp 97.6 F 10/21/22 08:00 Pulse 70 10/21/22 08:00 Resp 16 10/21/22 08:00 BP 140/87 10/21/22 08:00 Pulse Ox 94 10/21/22 08:36 O2 Del Method 10/21/22 08:36 Discharge Plan Discharge Patient Disposition: Home Condition: Stable Prescriptions: New cefuroxime axetil 500 mg tablet 500 mg PO BID 10 Days Qty: 20 0RF Continued levothyroxine 100 mcg tablet See Rx Instructions .ROUTE .COMPLEX Rx Instructions: 100 mcg orally on Thursday, Thursday, and Thursday levothyroxine 88 mcg Tablet See Rx Instructions .ROUTE .COMPLEX Rx Instructions: 88 mcg orally on Thursday, , Thursday, Thursday duloxetine 60 mg capsule,delayed release(DR/EC) 60 mg PO DAILY Discharge Orders: Discharge Order (Routine); Ordered 10/21/22 Ordered By: Adams Forde Referrals: Esdras Aguilar MD [Primary Care Provider] - 10/29/22 9:30 am Discharge Diet: Regular Discharge Activity: Resume usual activity Patient Instructions: Cefuroxime (By mouth) (Ceftin), Respiratory Syncytial Virus (DC), Pneumonia (GEN), Opioid Safety, Pneumonia Stoplight Activity Restrictions/Additional Instructions: Continue medications as before. You will be on antibiotics cefuroxime for next 10 days. Take 5 mg twice daily. Please follow-up with a primary care provider within next 1 week for repeat CBC and CMP. Lymphoma panel has been sent out for persistent leukocytosis while he was in the hospital. Please follow-up with a primary care provider in the next 1 week for results,. Discharge Attestations Time Spent in Discharge Care*: greater than 30 min Specific Discharge Activities: educating patient, discussing with pcp/other providers, discussing with pillowcase folder/social workers/dc planners, documenting/other paperwork and evaluating patient/reviewing data Status at Discharge: Cognitive status at discharge: cognitively intact , Behavioral status at discharge: cooperative , Functional status at discharge: independent ambulation , Overall status at discharge: patient is back to baseline Quality Metrics Clinical Quality Measures [ No reported AMI, CVA or VTE this stay] Coding Level of Care Code Acute Chg FW DC note Exam Comprehensive Diagnoses Sepsis A41.9 Pneumonia J18.9 Acute UTI N39.0 Leukocytosis D72.829 Hyponatremia E87.1 Multiple sclerosis G35 Dehydration E86.0 Thyroid disorder E07.9 Acidosis, lactic E87.20
[2022-10-21 11:02] VITALS: O2SAT 94
[2022-10-23 06:39] LABS: Leukemia Profile (BBPL) See Report; Lymphoma Profile (BBPL) See Report
== END 2022-10-21 11:04 | disposition home or self-care (01) | DRG 871 ==
LOC: ER 15:21 → MEDSURG 15:44
PROVIDERS: Admitting Provider Internal Medicine; Emergency Provider Emergency Medicine; PCP Family Medicine; Visit Provider Student in an Organized Health Care Education/Training Program
DX: A41.9 Sepsis, unspecified organism (principal); J15.9 Unspecified bacterial pneumonia; N39.0 Urinary tract infection, site not specified; N17.9 Acute kidney failure, unspecified; E87.20 Acidosis, unspecified; E87.1 Hypo-osmolality and hyponatremia; B97.4 Respiratory syncytial virus as the cause of diseases classified elsewhere; G35 Multiple sclerosis; E03.9 Hypothyroidism, unspecified; E86.0 Dehydration; B96.20 Unspecified Escherichia coli [E. coli] as the cause of diseases classified elsewhere
CPT/HCPCS: 36415; 71045; 71260; 74177; 80053; 80061; 81001; 82436; 82533; 83036; 83540; 83550; 83605; 84133; 84145; 84295; 84300; 84443; 85025; 86140; 86403; 87040; 87070; 87077; 87086; 87186; 87205; 87426; 87449; 87493; 87641; 87804; 88184; 88185; 93005; 94640; 94664; 96365; 96367; 96372; 96375; 99285; J1100; J1650; J1885; J2543; J3370; J7030; J7050; J7120; Q9967

== ENCOUNTER 2023-10-16 12:33 | Outpatient (CLI) | payer MEDICARE, SELFPAY ==
--- NOTE | 2023-10-16 12:38 | XR_ITS ---
WS: [id number] SCREENING DEXA SCAN [facility] CLINICAL INFORMATION: Z78.0 COMPARISON: 2020 FINDINGS: The L1-L4 bone mineral density measures 0.937 g/cm2. This corresponds to a T score score of -2.0 and Z score of -0.9. Left femoral neck bone mineral density measures 0.620 g/cm2. This corresponds to a T score of -3.1 an d Z score of -2.1. Right femoral neck bone mineral density measures 0.644 g/cm2. This corresponds to a T score -2.9of an d Z score of -1.9. Mean femoral neck bone mineral density measures 0.632 g/cm2. This corresponds to a T score of -3.0 an d Z score of -2.0. IMPRESSION: Osteopenia lumbar spine. Osteoporosis femoral necks. Patient's FRAX calculated 10 year probability fo r major osteoporotic fracture is 15.0% and osteoporotic hip fracture is 3.9%. Bone density lumbar spine decreased -2.8% Bone mineral density femoral necks decreased -10.9%
--- NOTE | 2023-10-16 12:48 | MM_ITS ---
WS: [id number] BILATERAL 3D TOMOSYNTHESIS DIGITAL SCREENING MAMMOGRAPHY WITH CAD CLINICAL INFORMATION: SCREEN HISTORY: Screening mammogram. No current complaints. COMPARISON: 10/09/2022 TECHNIQUE: Bilateral CC and MLO views. FINDINGS: Scattered fibroglandular densities bilaterally. No suspicious focal mass, asymmetry, calcifications, or architectural distortion. No evidence of malignancy. Incidental punctate calcifications. IMPRESSION: MM/[place] [id number] BI-RADS: 2-Benign FOLLOW UP: 1 Year Follow-up Recommend return to annual screening mammography.
== END 2023-10-16 12:34 | disposition home or self-care (01) ==
LOC: RAD 12:33
PROVIDERS: PCP Family Medicine; Visit Provider Family Medicine
DX: Z12.31 Encounter for screening mammogram for malignant neoplasm of breast (principal); Z13.820 Encounter for screening for osteoporosis; Z78.0 Asymptomatic menopausal state; M85.88 Other specified disorders of bone density and structure, other site; M81.0 Age-related osteoporosis without current pathological fracture
CPT/HCPCS: 77063; 77067; 77080

== ENCOUNTER 2024-10-17 07:50 | Outpatient (CLI) | payer MEDICARE, SELFPAY ==
--- NOTE | 2024-10-17 07:53 | MM_ITS ---
WS: [id number] BILATERAL SCREENING DIGITAL TOMOSYNTHESIS MAMMOGRAM WITH CAD HISTORY: SCREENING COMPARISON: 10/16/2023, 10/09/2022 Bilateral CC and MLO views with tomosynthesis and synthetic mammography submitted. Computer aided det ection analyzed. Breast composition: There are scattered areas of fibroglandular density. No suspicious masses, microc alcifications or architectural distortion. Scattered calcifications are benign. No suspicious groupin g of calcification. MM/MM scr tomosynthesis [id number] IMPRESSION: BI-RADS: 2 - Benign. FOLLOW UP: 1 Year Follow-up
== END 2024-10-17 07:51 | disposition home or self-care (01) ==
LOC: RAD 07:51
PROVIDERS: PCP Family Medicine; Visit Provider Family Medicine
DX: Z12.31 Encounter for screening mammogram for malignant neoplasm of breast (principal); R92.323 Mammographic fibroglandular density, bilateral breasts; R92.1 Mammographic calcification found on diagnostic imaging of breast
CPT/HCPCS: 77063; 77067